=== PATIENT | male | born 1940 | race Caucasian/White ===

== ENCOUNTER 2017-05-10 09:03 | Day surgery (SDC) | payer MEDICARE, OTHER ==
[2017-05-10] MEDS: Polymyxin B/Trimethoprim 10 ML Bottle EYERT SCH ×4 (10:30→12:19)
[2017-05-10] MEDS: Brimonidine 0.2% Ophth Soln 5 ML Bottle EYERT SCH ×4 (10:37→12:19)
[2017-05-10] MEDS: Phenylephrine 2.5% Ophth Soln 2 ML Bot EYERT SCH ×6 (10:40→11:46)
--- NOTE | 2017-05-10 10:56 | PCM.PREANE ---
Preanesthetic Assessment - Procedure Proposed Procedure: Right eye extraction cataract extraction with implant - Anesthesia/Transfusion/Family Hx Anesthesia History: Prior Anesthesia Without Reaction Family History of Anesthesia Reaction: No Transfusion History: No Prior Transfusion(s) Intubation History: Unknown - Review of Systems General: No Symptoms Pulmonary: No Symptoms Cardiovascular: No Symptoms Gastrointestinal: No Symptoms Neurological: No Symptoms Other: Reports: None - Physical Assessment NPO Status Date: 05/09/17 NPO Status Time: 21:00 O2 Sat by Pulse Oximetry: 95 Respiratory Rate: 16 Vital Signs: Last Vital Signs Temp 36.3 C 05/10/17 10:25 Pulse 65 05/10/17 10:25 Resp 16 05/10/17 10:25 BP 132/81 05/10/17 10:25 Pulse Ox 95 05/10/17 10:25 Weight: 77.111 kg ASA Class: 2 Mental Status: Alert & Oriented x3 Airway Class: Mallampati = 1 Dentition: Reports: Normal Dentition Thyro-Mental Finger Breadths: 3 Mouth Opening Finger Breadths: 5 ROM/Head Extension: Full Lungs: Clear to Auscultation, Normal Respiratory Effort Cardiovascular: Regular Rate, Regular Rhythm - Allergies Allergies/Adverse Reactions: Allergies Allergy/AdvReac Type Severity Reaction Status Date / Time No Known Allergies Allergy Verified 05/09/17 12:39 - Blood Blood Available: No - Anesthesia Plan Pre-Op Medication Ordered: None - Acknowledgements Anesthesia Type Planned: MAC Pt an Appropriate Candidate for the Planned Anesthesia: Yes Alternatives and Risks of Anesthesia Discussed w Pt/Guardian: Yes Pt/Guardian Understands and Agrees with Anesthesia Plan: Yes PreAnesthesia Questionnaire Cardiovascular History: Reports: High Cholesterol, Hypertension - HOME MEDS Home Medications: Home Meds Aspirin [Bell Chewable Aspirin] 81 mg PO DAILY 05/09/17 [History] Calcium Carbonate/Vitamin D3 [Calcium 600-Vit D3 500 Softgel] 1 cap PO DAILY [History] Ezetimibe [Zetia] 10 mg PO DAILY 05/09/17 [History] Finasteride 5 mg PO DAILY 05/09/17 [History] Fish Oil/[place]-3 Fatty Acids [Fish Oil 1,000 MG] 1 gm PO DAILY 05/09/17 [History ] Lisinopril [Prinivil] 5 mg PO DAILY 05/09/17 [History] Multivitamin [Zoo Chews] 1 tab PO DAILY 05/09/17 [History] Niacin 500 mg PO DAILY 05/09/17 [History] Tamsulosin [Flomax] 0.4 mg PO DAILY 05/09/17 [History] - CURRENT (IN HOUSE) MEDS Current Meds: Current Medications Brimonidine Tartrate (Alphagan 0.2% Ophth Soln) 0 ml EYERT ASDIRECTED JUAN MANUEL Stop: 05/10/17 18:00 Last Admin: 05/10/17 10:37 Dose: 1 drop Cefuroxime Sodium (Zinacef) 0 mg EYERT ASDIRECTED JUAN MANUEL Stop: 05/10/17 18:00 Lidocaine HCl (Xylocaine-Mpf 1%) 1 ml INJECT ASDIRECTED JUAN MANUEL Stop: 05/10/17 18:00 Phenylephrine HCl (Nik-Synephrine 2.5% Ophth Soln) 0 ml EYERT ASDIRECTED JUAN MANUEL Stop: 05/10/17 18:00 Last Admin: 05/10/17 10:40 Dose: 1 drop Pilocarpine HCl (Pilocar 4% Ophth Soln) 0 ml EYERT ASDIRECTED JUAN MANUEL Stop: 05/10/17 18:00 Polymyxin/Trimethoprim Sulfate (Polytrim Ophth Soln) 0 ml EYERT ASDIRECTED JUAN MANUEL Stop: 05/10/17 18:00 Last Admin: 05/10/17 10:30 Dose: 1 drop Tetracaine HCl (Tetracaine 0.5% Steri-Unit Omayra) 0 ml EYERT ASDIRECTED JUAN MANUEL Stop: 05/10/17 18:00 Tropicamide (Mydriacyl 1% Ophth Soln) 0 ml EYERT ASDIRECTED JUAN MANUEL Stop: 05/10/17 18:00
[2017-05-10] MEDS: Tetracaine HCl/PF 0.5% 4 ML Bottle EYERT SCH ×3 (11:14→11:56)
[2017-05-10] MEDS: Cefuroxime 10 MG/ML SYRINGE EYERT SCH ×2 (11:14→12:18)
[2017-05-10] MEDS: Lidocaine 1% PF 2 ML SDV INJECT SCH ×2 (11:14→11:56)
[2017-05-10] MEDS: Pilocarpine 4% Ophth Soln 15 ML Bot EYERT SCH ×2 (11:15→12:19)
--- NOTE | 2017-05-10 12:02 | PCM48HPAN ---
Post Anesthesia Note - EVALUATION WITHIN 48HRS OF ANESTHETIC Vital Signs in Normal Range: Yes Patient Participated in Evaluation: Yes Respiratory Function Stable: Yes Airway Patent: Yes Cardiovascular Function Stable: Yes Hydration Status Stable: Yes Pain Control Satisfactory: Yes Nausea and Vomiting Control Satisfactory: Yes Mental Status Recovered: Yes Pulse Rate: 60 SaO2: 99 Resp Rate: 16 Temperature: 97 C Blood Pressure: 152/78
== END 2017-05-10 12:35 | disposition home or self-care (01) ==
LOC: JD.SDS 09:03
PROVIDERS: ATTEND Ophthalmology
DX: H25.811 Combined forms of age-related cataract, right eye (principal); H21.81 Floppy iris syndrome; H21.40 Pupillary membranes, unspecified eye; H47.012 Ischemic optic neuropathy, left eye; H52.31 Anisometropia; H02.831 Dermatochalasis of right upper eyelid; H02.834 Dermatochalasis of left upper eyelid; I10 Essential (primary) hypertension; E78.00 Pure hypercholesterolemia, unspecified; Z79.82 Long term (current) use of aspirin; Z79.899 Other long term (current) drug therapy; Z98.42 Cataract extraction status, left eye; Z96.1 Presence of intraocular lens; Z98.890 Other specified postprocedural states
CPT/HCPCS: 66982; C1780; J0697; A9270-GY